=== PATIENT | female | born 1975 | race Caucasian/White ===

== ENCOUNTER 2019-12-27 12:33 | Emergency (ER) | payer OTHER ==
[~2019-12-27] VITALS: Ht 170.2 cm; Wt 95.3 kg
[~2019-12-27 12:33] MED LIST: ORPH100T; PNEU16DI2; RELAFEN; TYLENOL-CODEINE1 TAB
[2019-12-27] MEDS ORDERED: AMBIEN10 MG (13:29)
[2019-12-27] MEDS ORDERED: NEURONTIN300 MG (13:30)
[2019-12-27] MEDS ORDERED: MINOCYCLINE HCL75 M1 (13:31)
== END 2019-12-27 17:07 | disposition home or self-care (01) ==
LOC: ER 12:33
DX: T78.3XXA Angioneurotic edema, initial encounter (principal)

== ENCOUNTER 2023-04-10 12:35 | Emergency (ER) | payer OTHER ==
[~2023-04-10] VITALS: Ht 170.2 cm; Wt 92.1 kg
[~2023-04-10 12:35] MED LIST changes: +AMBIEN10 MG; +MINOCYCLINE HCL75 M1; +NEURONTIN300 MG
[2023-04-11] MEDS ORDERED: ZYRTEC10 M3 PO (13:57)
[2023-04-11] MEDS ORDERED: SYMBIC IH (13:57)
[2023-04-11] MEDS ORDERED: PROVENT IH (13:58)
[2023-04-11] MEDS ORDERED: WELLBU PO (13:58)
[2023-04-11] MEDS ORDERED: CLONAZ PO (13:59)
[2023-04-11] MEDS ORDERED: NEXIUM PO (13:59)
== END 2023-04-10 22:18 | disposition home or self-care (01) ==
LOC: ER 12:35
DX: R10.2 Pelvic and perineal pain (principal)

== ENCOUNTER 2023-04-16 05:12 | Day surgery (SDC) | payer OTHER ==
[~2023-04-16] VITALS: Ht 170.2 cm; Wt 92.1 kg
[~2023-04-16 05:12] MED LIST changes: +CLONAZ PO; +NEXIUM PO; +PROVENT IH; +SYMBIC IH; +WELLBU PO; +ZYRTEC10 M3 PO
== END 2023-04-16 16:35 | disposition home or self-care (01) ==
LOC: ADM 05:12 → CIR.AMB 05:12 → ADM 10:45 → CIR.AMB 16:35
PROVIDERS: ATTEND Obstetrics & Gynecology
DX: N84.0 Polyp of corpus uteri (principal); N72 Inflammatory disease of cervix uteri; N93.8 Other specified abnormal uterine and vaginal bleeding; Z20.822 Contact with and (suspected) exposure to COVID-19

== ENCOUNTER 2023-05-18 07:20 | Inpatient (IN) | payer OTHER ==
[~2023-05-18] VITALS: Ht 170.2 cm; Wt 90.7 kg
[2023-05-18] MEDS ORDERED: AMBIEN10 MG PO (08:06)
== END 2023-05-24 10:30 | disposition home or self-care (01) | DRG 743 ==
LOC: O/R 05-21 05:09 → OB/GYN 05-21 05:09 → SURG 05-21 07:45 → OB/GYN 05-21 13:41 → SURG 05-21 14:30 → OB/GYN 05-24 10:30
PROVIDERS: ADMIT Obstetrics & Gynecology; ATTEND Obstetrics & Gynecology
PROC: 0UT20ZZ Resection of Bilateral Ovaries, Open Approach (ICD-10-PCS; 2023-05-21)
PROC: 0UT70ZZ Resection of Bilateral Fallopian Tubes, Open Approach (ICD-10-PCS; 2023-05-21)
PROC: 0UT90ZZ Resection of Uterus, Open Approach (ICD-10-PCS; principal; 2023-05-21 14:30)
DX: D25.1 Intramural leiomyoma of uterus (principal); D25.0 Submucous leiomyoma of uterus; D25.2 Subserosal leiomyoma of uterus; N80.03 Adenomyosis of the uterus; N84.0 Polyp of corpus uteri; Z20.822 Contact with and (suspected) exposure to COVID-19

== ENCOUNTER 2023-07-23 05:20 | Day surgery (SDC) | payer OTHER ==
[~2023-07-23] VITALS: Ht 170.2 cm; Wt 95.3 kg
[~2023-07-23 05:20] MED LIST changes: +AMBIEN10 MG PO
== END 2023-07-23 18:00 | disposition home or self-care (01) ==
LOC: CIR.AMB 05:20
PROVIDERS: ATTEND Obstetrics & Gynecology
DX: S31.41XA Laceration without foreign body of vagina and vulva, initial encounter (principal); Z20.822 Contact with and (suspected) exposure to COVID-19; Z88.2 Allergy status to sulfonamides